=== PATIENT | male | born 1985 | race Caucasian/White ===

== ENCOUNTER 2016-11-07 15:22 | Emergency (ER) | payer OTHER ==
[~2016-11-07] VITALS: Ht 172.7 cm; Wt 78.9 kg
[2016-11-07] MEDS ORDERED: NORC1TAB4 PO (15:40)
[2016-11-07] MEDS ORDERED: GABA-283 PO (15:40)
[2016-11-07] MEDS ORDERED: HALOPERIDOL 5 MG/ML VIAL (J1630) IM ONE (15:45)
[2016-11-07] MEDS ORDERED: diphenhydrAMINE INJ 50MG/ML VIAL (J1200) IM ONE (15:45)
[2016-11-07] MEDS ORDERED: LORazepam 2 MG/ML VIAL (J2060) IM ONE (15:45)
[2016-11-07 16:25] LABS: BASO % 0.7 % (0.0-1.0); EOS # 0.1 K/mm3 (0.0-0.50); EOS % 0.9 % (0.0-3.0); LARGE UNSTAINED CELL # 0.2 K/mm3 (0.0-0.4); LARGE UNSTAINED CELL % 2.1 % (0.0-4.0); LYMPH # 2.3 K/mm3 (1.5-4.5); LYMPH % 28.3 % (24.0-44.0); MEAN CORPUSCULAR HGB CONC 33.4 g/dl (32.0-36.5); MEAN CORPUSCULAR VOLUME 95.7 fl (80.0-96.0); MONO # 0.4 K/mm3 (0.0-0.8); MONO % 5.5 % (0.0-5.0); NEUTROPHILS # 4.7 K/mm3 (1.8-7.7); NEUTROPHILS % 62.5 % (36.0-66.0); PLATELET COUNT, AUTOMATED 255 k/mm3 (150-450); WHITE BLOOD COUNT 7.4 K/mm3 (4.0-10.0)
[2016-11-07 16:38] LABS: METHADONE URINE NEGATIVE (NEGATIVE)
[2016-11-07 16:50] LABS: ALBUMIN 4.6 GM/DL (3.2-5.2); ALBUMIN/GLOBULIN RATIO 1.44 (1.00-1.93); ALKALINE PHOSPHATASE 58 U/L (45-117); ALT/SGPT 38 U/L (12-78); ANION GAP 10 MEQ/L (8-16); AST/SGOT 18 U/L (15-37); BILIRUBIN,DIRECT < 0.1 MG/DL (0.0-0.2); BILIRUBIN,TOTAL 0.3 MG/DL (0.2-1.0); BLOOD UREA NITROGEN 15 MG/DL (7-18); CALCIUM LEVEL 8.8 MG/DL (8.5-10.1); CARBON DIOXIDE LEVEL 22 MEQ/L (21-32); CHLORIDE LEVEL 111 MEQ/L (98-107); CREATININE FOR GFR 1.08 MG/DL (0.70-1.30); GLOMERULAR FILTRATION RATE > 60.0 (>60); GLUCOSE, FASTING 106 MG/DL (70-105); POTASSIUM SERUM 3.7 MEQ/L (3.5-5.1); SODIUM LEVEL 143 MEQ/L (136-145); TOTAL PROTEIN 7.8 GM/DL (6.4-8.2)
[2016-11-07] MEDS ORDERED: NS 1,000 ML IV ONE ×2 (19:00→22:00)
--- NOTE | 2016-11-07 21:20 | ECGEPIP ---
Stationary ECG Study [facility] - ED Test Date: 2016-11-07 Pat Name: STAN AGOSTO Department: Room: - Gender: M Transmission Engineer: JGregory : 1985 Requested By: Andres Mckeon Order Number: [id number] Reading MD: Vale Rowley Measurements Intervals [place] Rate: 94 P: 72 IN: 175 QRS: 18 QRSD: 121 T: 28 QT: 360 QTc: 450 Interpretive Statements SINUS RHYTHM MODERATE INTRAVENTRICULAR CONDUCTION DELAY NO PRIOR FOR COMPARISON Electronically Signed On 11-07-2016 21:19:36 EDT by Vale Rowley
--- NOTE | 2016-11-07 21:20 | ECGEPIP ---
Stationary ECG Study [facility] - ED Test Date: 2016-11-07 Pat Name: STAN AGOSTO Department: Room: - Gender: M [employer]osives Truck Driver: : 1985 Requested By: Andres Mckeon Order Number: [id number] Reading MD: Vale Rowley Measurements Intervals [place] Rate: 88 P: 57 UT: 160 QRS: -13 QRSD: 120 T: 35 QT: 380 QTc: 461 Interpretive Statements SINUS RHYTHM MODERATE INTRAVENTRICULAR CONDUCTION DELAY SIMILAR 15:59 Electronically Signed On 11-07-2016 21:20:26 EDT by Vale Rowley
[2016-11-08 12:19] VITALS: BP 162/90
== END 2016-11-08 12:24 | disposition home or self-care (01) ==
LOC: EDBD 15:22 → M ED 18:25
DX: F10.129 Alcohol abuse with intoxication, unspecified (principal)
CPT/HCPCS: 36415; 80048; 80076; 80306; 82550; 84443; 85025; 93005; 93041; 96372; 99285; G0480; J1200; J1630; J2060

== ENCOUNTER → 2018-07-04 | Outpatient (CLI) | payer OTHER ==
[~2018-07-04] MED LIST: ISOVUE-370 76% 100ML VIAL (Q9967) As Ordered
== END ==
LOC: M RAD 16:31
DX: R91.8 Other nonspecific abnormal finding of lung field (principal)
CPT/HCPCS: Q9967